=== PATIENT | male | born 1990 | race Caucasian/White ===

== ENCOUNTER 2024-09-06 16:17 | Emergency (ER) | payer BC, SELFPAY ==
--- OUTSIDE RECORDS SUMMARY | 2024-09-06 16:20 | XMS_ITS | Clinical Summary ---
Author Organization [facility] Address [address] [place] [id number] Care Team Providers Care Branch General Manager Name Role Phone Jorge Jones PA-C Primary Care Provider Allergies Active Allergy Reactions Criticality Noted Date Comments No Known Drug Allergy 12/21/2002 Medications ketorolac (TORADOL) 10 MG tablet Take 1 tablet (10 mg) by mouth every 6 hours as needed for pain 15 tablet 0 Active Additional Information Patient not taking.Reported on 06/04/2022 Active Problems Problem Noted Date Diagnosed Date Tobacco use 02/11/2013 CARDIOVASCULAR SCREENING; LDL GOAL LESS THAN 160 06/26/2011 ADHD (attention deficit hyperactivity disorder) 04/27/2008 Overview (08/15/2013): As long as stable, next OV due 07/2013; SEE PHONE CALL FROM 04/14/13 BEFORE ANY REFILLS 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 Provider to review Resolved Problems Problem Noted Date Diagnosed Date Resolved Date Pain in limb 12/28/2005 11/07/2011 Mild intermittent asthma Immunizations Immunization Administration Dates Next Due DTAP (<7y) 11/23/1996 HEPA 05/03/2007,11/04/2005 HIB (PRP-T) 03/19/1993, 3,01/16/1992,10/31 HepB 10/21/1994,05/29/1994,04/16/1994 Hepatitis A (Vaqta/Havrix)(P eds 12m-18y) 05/03/2007,11/04/2005 Historical DTP/aP 12/10/1992, 2,01/16/1992,10/31 Influenza (IIV3) PF 01/11/2014,04/09/2012 Influenza Vaccine >6 months,quad, PF 01/11/2019 MMR (MMRII) 11/23/1996,12/10/1992 Meningococcal ACWY (Menactra ) 11/04/2005 Meningococcal ACWY (Menveo ) 11/04/2005 OPV, trivalent, live 11/23/1996,12/10/18 93,01/16/1992,10/31 TD,PF 7+ (Tenivac) 07/25/2004 TDAP (Adacel,Boostrix) 03/14/2018 Td (Adult), Adsorbed 07/25/2004 Varicella (Varivax) 05/03/2007,10/21/1994 Family History Medical History Relation Comments Diabetes Maternal Grandfather Type II Cancer Maternal Grandmother Lung Relation Status Comments Maternal Grandfather Maternal Grandmother Social History Tobacco Use Types Packs/Day Years Used Date Smoking Tobacco: Every Day Cigarettes Smokeless Tobacco: Never Tobacco Cessation:Ready to Q uit: Not Asked; Counseling Given: Not Answered Alcohol Use Standard Drinks/Week Comments Yes 20 (1 standard drink = 0.6 oz pu re alcohol) Adolescent Education Answer Date Record ed Getting School Help Needed Not on file 01/04 Sex and Gender Information Value Date Recorded Sex Assigned at Not on file Legal Sex Male 4:17 AM TOBACCO STRIPPER HAND Gender Identity Not on file Sexual Orientation Not on file Last Filed Vital Signs Vital Sign Reading Time Taken Comments Blood Pressure 112/79 06/04/2022 11:58 AM TOBACCO STRIPPER HAND Pulse 71 06/04/2022 11:58 AM TOBACCO STRIPPER HAND Temperature 36.7 C (98 F) 06/04/2022 11:58 AM TOBACCO STRIPPER HAND Respiratory Rate 16 06/04/2022 11:58 AM TOBACCO STRIPPER HAND Oxygen Saturation 97% 06/04/2022 11:58 AM TOBACCO STRIPPER HAND Inhaled Oxygen Concentration - - Weight 99.3 kg (219 lb) 06/04/2022 11:58 AM TOBACCO STRIPPER HAND Height 185.4 cm (6' 1) 09/14/2019 3:52 PM CDT Body Mass Index 28.89 09/14/2019 3:52 PM CDT Plan of Treatment Health Maintenance Due Date Last Done Comments ADVANCE CARE PLANNING 1991 ANNUAL REVIEW OF HM ORDERS 1991 HIV SCREENING 08/11/2006 YEARLY PREVENTIVE VISIT 05/03/2008 05/03/2007, 11/04 HEPATITIS C SCREENING 08/11/2009 PNEUMOCOCCAL VACCINE: PEDIATRICS (0 to 5 YEARS) AND AT-RISK PATIENTS (6 to 49 YEARS) (1 of 2 - PCV) 08/11/2010 COVID-19 VACCINE ( - season) 2023 PHQ-2 (once per calendar year) 2024 INFLUENZA VACCINE (Season Ended) 2024 01/11/2019, 01/11/2014, 04/09/2012 DTAP/TDAP/TD VACCINE (7 - Td or Tdap) 03/14/2028 03/14/2018, 07/25/2004, 07/25/2004, Additional history exists ZOSTER VACCINE (1 of 2) 08/11/2041 HEPATITIS B VACCINE Completed 10/21/1994, 05/29/1994, 04/16/1994 MENINGITIS VACCINE Aged Out 11/04/2005, 11/04/2005 No longer eligible based on patient's age to complete this topic HPV VACCINE Aged Out No longer eligi ble based on patient's age to complete this topic Insurance [facility] Care Teams Branch General Manager Relationship Specialty Start Date End Date Jorge Jones PA-C [address] [id number] PCP - General Family Practice 06/26/11
[2024-09-06 16:41] VITALS: BP 101/65; PULSE 111; RESP 24; TEMP 37.1; O2SAT 98; BMI 26.7
--- NOTE | 2024-09-06 17:04 | ED_ITS ---
HPI - General Adult General Chief complaint: Nausea/Vomiting Stated complaint: vomiting, cramping Time Seen by Provider: 09/06/24 17:04 History of Present Illness HPI narrative: patient is having pain in the abdomen of NVD. called stomach for the past 8 months-12 years . today the pain is the worst and in the center with radiation up into the upper abd. wants to rule out appy and other causes. 34-year-old man presenting to the emergency department Since childhood history of abdominal pains. Does have GERD and takes regular antacids. Once a month for years will have period of time usually was 4-5 hours where he has both diarrhea and vomiting after some small harder stools. This abdominal pain though is becoming more intense and lasting for longer duration might be lungs 36 hours. No melena or hematochezia is described. Is here with spouse and mother and another. Mom recounts how had projectile vomiting? as a child with colic. Does not sound like there was a diagnosis made of pyloric stenosis. Had reflux at that time. They note the grandmother with diverticulitis and irritable bowel possibly ulcerative colitis? Mom did give Tej one of her Xanax today as he does struggle with some anxiety. Has never had any evaluation or at least not any imaging. Does admit to THC use though it sounds somewhat limited. Related Data Previous Rx's ?Medication ?Instructions ?Recorded omeprazole 40 mg capsule,delayed 40 mg PO DAILY #30 ca ps 09/06/24 release Allergies Allergy/AdvReac Type Severity Reaction Status Date / Time No Known Drug Allergies Allergy Verified 09/06/24 16:48 Review of Systems Status of ROS: Reports: 6 or more systems reviewed and unremarkable except as noted in History and below Exam Narrative: Exam Narrative: Pleasant. Clearly uncomfortable. Moaning a little in discomfort. Skin is warm and dry. Extremities are well perfused without edema. Heart in elevated rate and regular rhythm. Abdomen present bowel sounds. Diffusely tender with a little guarding. Tenderness more in the mid upper abdomen. Const: Vital Signs, click to edit/add: Vital Signs - 24 hr 09/06/24 16:41 Temperature 98.7 F Pulse Rate [Pulse Oximeter] 111 H Respiratory Rate 24 Blood Pressure [Ri ght Upper Arm] 101/65 Pulse Oximetry 98 Oxygen Delivery Me thod Room Air Documenting provider has reviewed patient's vital signs: yes Course Vital Signs Vital signs: Initial Vital Signs Temperature 98.7 F 09/06/24 16:41 Temperature Source Temporal Artery Scan 09/06/24 16:41 Pulse Rate 111 H 09/06/24 16:41 Respiratory Rate 24 09/06/24 16:41 Blood Pressure 101/65 09/06/24 16:41 Blood Pressure Mean 77 09/06/24 16:41 Blood Pressure Position Sitting 09/06/24 16:41 Pulse Oximetry 98 09/06/24 16:41 Oxygen Delivery Method Room Air 09/06/24 16:41 Vital Signs Temperature 98.7 F 09/06/24 16:41 Pulse Rate 111 H 09/06/24 16:41 Respiratory Rate 24 09/06/24 16:41 Blood Pressure 101/65 09/06/24 16:41 Pulse Oximetry 98 09/06/24 16:41 Oxygen Delivery Method Room Air 09/06/24 16:41 Temperature 98.7 F 09/06/24 16:41 Pulse Rate 62 09/06/24 20:20 Respiratory Rate 16 09/06/24 20:20 Blood Pressure 115/63 09/06/24 20:20 Pulse Oximetry 97 09/06/24 20:20 Oxygen Delivery Method Room Air 09/06/24 20:20 Medications Administered Medications: Discontinued Medications Generic Name Dose Route Start Last Admin Trade Name Freq PRN Reason Stop Dose Admin Hyoscyamine 0.25 mg 09/06/24 17:29 09/06/24 18:03 Hyoscyamine Sulfate 0.125 Mg Tab SUBLINGUAL 09/06/24 17:30 0.25 mg ONCE ONE Administration Sodium Chloride 1,000 mls @ 1,000 mls/hr 09/06/24 17:29 09/06/24 19:05 0.9 % Sodium Chloride 1000 Ml IV 09/06/24 18:28 Infused .Q1H ONE Infusion Lactated Ringer's 1,000 mls @ 1,000 mls/hr 09/06/24 18:57 09/06/24 20:43 Lactated Ringers 1000 Ml IV 09/06/24 19:56 Infused .Q1H ONE Infusion Ketorolac Tromethamine 30 mg 09/06/24 17:29 09/06/24 18:01 Ketorolac 30 Mg/Ml Inj IVP 09/06/24 17:30 30 mg ONCE ONE Administration Morphine Sulfate 4 mg 09/06/24 17:29 09/06/24 18:01 Morphine 4 Mg/Ml Inj IVP 09/06/24 17:30 4 mg ONCE ONE Administration Omeprazole 40 mg 09/06/24 20:22 09/06/24 20:37 Omeprazole [address] PO 09/06/24 20:23 40 mg ONCE ONE Administration Ondansetron HCl 4 mg 09/06/24 17:29 09/06/24 18:02 Ondansetron 2 Mg/Ml Inj IVP 09/06/24 17:30 4 mg ONCE ONE Administration Medical Decision Making MDM Narrative Medical decision making narrative: I did discuss my suspicion that there will be minimal findings here. Might be related anxiety. Appears to have functional abdominal pain. They would like to pursue further evaluation however and certainly relief of pain as soon as possible. Has never had any abdominal imaging so will offer that here today. Also check labs. I doubt that has appendicitis or other localizing intervenable problem. Ordered for Zofran, morphine, hyoscyamine, ketorolac, normal saline. White count has some elevation of 15.4. We will proceed with abdominal CT imaging. Creatinine little bit elevated at 1.3 in the setting of an elevated lactate at 2. I suspect this is due to poor intake/dehydration. Given another L of fluids -LR IV contrasted CT of abdomen and pelvis independently reviewed by me looks to be unremarkable. Overall markedly improved with treatment as above. Radiology over-read below TECHNIQUE: CT abdomen and pelvis acquired with 95 cc Isovue 370 IV contrast. COMPARISON: None. FINDINGS: Lower chest: Unremarkable. Liver: Unremarkable. Normal in size and attenuation. No suspicious masses. Gallbladder and bile ducts: Unremarkable. No stones or inflammation. No biliary dilatation. Pancreas: Unremarkable. No mass or inflammation. Spleen: Unremarkable. Normal in size. No masses. Adrenal glands: Unremarkable. No nodules. Kidneys: Unremarkable. No suspicious masses, stones, or hydronephrosis. GI tract: Unremarkable. Normal in caliber. No sign of mass or inflammation. Appendix not definitely seen, however no right lower quadrant inflammatory stranding to suggest appendicitis. Vasculature: Abdominal aorta is normal in caliber. Mesenteric arteries are patent. Lymph nodes: No lymphadenopathy. Peritoneum/Abdominal Wall: Unremarkable. No sign of mass or infiltration. No free air or significant free fluid. Pelvis: Unremarkable. Bones: Unremarkable for age. IMPRESSION: No acute intra-abdominal/pelvic abnormality. Please note that all CT scans at this facility use dose modulation, iterative reconstruction, and/or weight-based dosing when appropriate to reduce radiation dose to as low as reasonably achievable. Dictated by Jewel Oneill MD @ 09/06/2024 6:31:27 PM Discussed next steps in workup including scopes and then further medical management as necessary. Discussed likely complicated treatment but Mr. Wang appears motivated. Also expressed concerns of potential relationship with THC. Does appear interested in alternative medicine treatments if possible. See patient discharge plan for further discussion Stay well-hydrated. It might be helpful to begin a diet diary of everything you eat and drink and smoke/ingest and however this might correlate with flares of your abdominal pain. Given chronicity of this and your history of esophageal reflux type symptoms, I do think it would be good idea to for you to get an EGD and possibly a colonoscopy. Can certainly follow-up in clinic as discussed. You might end up with referral to GI as well. If you want to pursue alternative medication that is certainly fine; I would just communicate this also to your new primary care provider. Probiotics of various forms probably do not hurt anything. Am prescribing medication for nausea Zofran and opiate-containing pain medicine from [facility]. I would take at least 2 weeks of omeprazole. You received a dose of pantoprazole here. Further recommendations to come during follow-up visits Lab Data Lab results reviewed: Yes I reviewed the patient's lab results Labs: Lab Results 09/06/24 09/06/24 Range/Units 17:29 18:10 WBC 15.41 H (4.50-11.00) K/uL RBC 5.75 (4.30-5.90) m/uL Hgb 18.5 H (13.5-17.5) gm/dL Hct 51.6 (37.0-53.0) % MCV 90 (80-100) fL MCH 32 (26-34) pg MCHC 36 (32-36) gm/dL RDW Coeff of [place] 11.9 (11.5-15.5) % Plt Count 350 (140-440) K/uL Neut % (Auto) 92.5 H (42.0-72.0) % Lymph % (Auto) 3.8 L (20-44) % [place] % (Auto) 3.2 (0.0-11.0) % Eos % (Auto) 0.1 (0.0-7.0) % Baso % (Auto) 0.3 (0.0-3.0) % Neut # (Auto) 14.30 H (1.7-7.0) K/uL Lymph # (Auto) 0.60 L (0.90-2.90) K/uL [place] # (Auto) 0.50 (0.00-0.90) K/UL Eos # (Auto) 0.00 (0.00-0.50) K/uL Baso # (Auto) 0.00 (0.00-0.30) K/uL Abs Immat Gran (auto) 0.00 (0.00-0.30) K/uL Imm/Tot Granulo (auto) 0.1 % Sodium 139 (135-149) mmol/L Potassium 4.3 (3.6-5.1) mmol/L Chloride 106 (96-114) mmol/L Carbon Dioxide 19 L (20-32) mmol/L Anion Gap 14 (7-15) mEq/L BUN 22 (5-24) mg/dL Creatinine 1.3 (0.5-1.5) mg/dL Estimated Creat Clear 91.34 Estimated GFR 74 ml/min Glucose 123 H (60-115) mg/dL Lactate 2.0 H (0.5-1.9) mmol/L Calcium 10.0 (8.4-10.6) mg/dL Total Bilirubin 2.0 H (0.1-1.5) mg/dL Direct Bilirubin 0.0 (0.0-0.5) mg/dL AST 32 (12-35) U/L ALT 32 (4-50) U/L Alkaline Phosphatase 57 (40-150) U/L Total Protein 8.4 H (6.0-8.3) g/dL Albumin 5.2 H (3.3-5.0) g/dL Urine Color Yellow (Yellow) Urine Appearance Clear (Clear) Urine pH 6.0 (5.0-8.5) Ur Specific [place] >= 1.030 (1.000-1.030) Urine Protein 2+ A (Negative) Urine Glucose (UA) Negative (Negative) Urine Ketones 3+ A (Negative) Urine Blood Negative (Negative) Urine Nitrite Negative (Negative) Urine Bilirubin 2+ A (Negative) Urine Urobilinogen 0.2 (0.2-1.0) Ur Leukocyte Esterase Negative (Negative) Urine RBC 0-2 (0-2) Urine WBC 0-2 (0-5) Ur Squamous Epith Cells Few (None-Few) Urine Bacteria None (None) Urine Opiates Screen Negative (Negative) Ur Oxycodone Screen Negative (Negative) Urine Methadone Screen Negative (Negative) Ur Barbiturates Screen Negative (Negative) U Tricyclic Antidepress Negative (Negative) Ur Phencyclidine Scrn Negative (Negative) Ur Amphetamines Screen Negative (Negative) U Methamphetamines Scrn Negative (Negative) U Benzodiazepines Scrn POSITIVE A (Negative) Urine Cocaine Screen Negative (Negative) U Marijuana (THC) Screen POSITIVE A (Negative) Ur Drug Screen Comment See Note Discharge Plan Discharge Clinical Impression: GERD (gastroesophageal reflux disease), Functional abdominal pain syndrome Patient Disposition: Home w/ Parent or Adult Condition: Improved Instructions: GERD (Gastroesophageal Reflux Disease) (DC) Additional Instructions: Stay well-hydrated. It might be helpful to begin a diet diary of everything you eat and drink and smoke/ingest and however this might correlate with flares of your abdominal pain. Given chronicity of this and your history of esophageal reflux type symptoms, I do think it would be good idea to for you to get an EGD and possibly a colonoscopy. Can certainly follow-up in clinic as discussed. You might end up with referral to GI as well. If you want to pursue alternative medication that is certainly fine; I would just communicate this also to your new primary care provider. Probiotics of various forms probably do not hurt anything. Am prescribing medication for nausea Zofran and opiate-containing pain medicine from [facility]. I would take at least 2 weeks of omeprazole. You received a dose of pantoprazole here. Further recommendations to come during follow-up visits. Prescriptions: New omeprazole 40 mg capsule,delayed release(DR/EC) 40 mg PO DAILY Qty: 30 0RF Follow Up/Referrals: Provider,Not a Local [Primary Care Provider, Family Practice] Stand Alone Forms: Sleep.[facility] Info Instructions
--- NOTE | 2024-09-06 17:30 | CRLHL7_ITS ---
For Patients: As a result of the Century Cures Act, medical imaging exams and procedure reports are released immediately into your electronic medical record. You may view this report before your referring provider. If you have questions, please contact your health care provider. INDICATION: Recurrent severe mid abdominal pain. TECHNIQUE: CT abdomen and pelvis acquired with 95 cc Isovue 370 IV contrast. COMPARISON: None. FINDINGS: Lower chest: Unremarkable. Liver: Unremarkable. Normal in size and attenuation. No suspicious masses. Gallbladder and bile ducts: Unremarkable. No stones or inflammation. No biliary dilatation. Pancreas: Unremarkable. No mass or inflammation. Spleen: Unremarkable. Normal in size. No masses. Adrenal glands: Unremarkable. No nodules. Kidneys: Unremarkable. No suspicious masses, stones, or hydronephrosis. GI tract: Unremarkable. Normal in caliber. No sign of mass or inflammation. Appendix not definitely seen, however no right lower quadrant inflammatory stranding to suggest appendicitis. Vasculature: Abdominal aorta is normal in caliber. Mesenteric arteries are patent. Lymph nodes: No lymphadenopathy. Peritoneum/Abdominal Wall: Unremarkable. No sign of mass or infiltration. No free air or significant free fluid. Pelvis: Unremarkable. Bones: Unremarkable for age. IMPRESSION: No acute intra-abdominal/pelvic abnormality. Please note that all CT scans at this facility use dose modulation, iterative reconstruction, and/or weight-based dosing when appropriate to reduce radiation dose to as low as reasonably achievable. Dictated by Jewel Oneill MD @ 09/06/2024 6:31:27 PM (Electronically Signed)
[2024-09-06 17:58] LABS: Appearance Urine Clear (Clear); Bilirubin Urine 2+ (Negative); Blood Urine Negative (Negative); Color Urine Yellow (Yellow); Glucose Urine Negative (Negative); Ketones Urine 3+ (Negative); Leukocyte Esterase Urine Negative (Negative); Nitrite Urine Negative (Negative); Protein Urine 2+ (Negative); Specific Gravity Urine >= 1.030 (1.000-1.030); Urobilinogen Urine 0.2 (0.2-1.0)
[2024-09-06] MEDS: MORPHINE 4 MG/ML INJ IVP (18:01)
[2024-09-06] MEDS: KETOROLAC 30 MG/ML inj IVP (18:01)
[2024-09-06] MEDS: ONDANSETRON 2 MG/ML inj 4 MG IVP (18:02)
[2024-09-06] MEDS: 0.9 % SODIUM CHLORIDE 1000 ml 1,000 ML IV (18:03)
[2024-09-06] MEDS: HYOSCYAMINE SULFATE 0.125 MG TAB 0.25 MG SUBLINGUAL (18:03)
[2024-09-06 18:05] LABS: Amphetamine Screen Urine Negative (Negative); Barbiturate Screen Urine Negative (Negative); Benzodiazepines Screen Urine POSITIVE (Negative); Cannabinoid Screen Urine POSITIVE (Negative); Cocaine Screen Urine Negative (Negative); Methadone Screen Urine Negative (Negative); Methamphetamines Screen Urine Negative (Negative); Opiate Screen Urine Negative (Negative); Oxycodone Screen Urine Negative (Negative); Phencyclidine Screen Urine Negative (Negative); Tricyclic Antidepressant Urine Negative (Negative)
[2024-09-06 18:13] LABS: RBC Urine 0-2 (0-2); Squamous Epithelial Cell Urine Few (None-Few); WBC Urine 0-2 (0-5)
[2024-09-06 18:24] LABS: Basophils Percent Auto 0.3 % (0.0-3.0); Eosinophils Percent Auto 0.1 % (0.0-7.0); Hematocrit 51.6 % (37.0-53.0); Hemoglobin* 18.5 gm/dL (13.5-17.5); Immature Granulocytes Pct Auto 0.1 %; Lymphocytes Percent Auto 3.8 % (20-44); Mean Corpuscular HGB Conc 36 gm/dL (32-36); Mean Corpuscular Hemoglobin 32 pg (26-34); Mean Corpuscular Volume 90 fL (80-100); Monocytes Percent Auto 3.2 % (0.0-11.0); Neutrophils Percent Auto 92.5 % (42.0-72.0); Platelet Count* 350 K/uL (140-440); RDW Coefficient of Variation % 11.9 % (11.5-15.5); Red Blood Count 5.75 m/uL (4.30-5.90); White Blood Count* 15.41 K/uL (4.50-11.00)
[2024-09-06 18:25] LABS: Slide Review Reflex No
[2024-09-06 18:45] VITALS: BP 108/62; PULSE 79; RESP 16; O2SAT 96
[2024-09-06 18:51] LABS: Albumin* 5.2 g/dL (3.3-5.0); Chloride* 106 mmol/L (96-114); Potassium* 4.3 mmol/L (3.6-5.1); Sodium* 139 mmol/L (135-149)
[2024-09-06 18:53] LABS: Anion Gap 14 mEq/L (7-15); Blood Urea Nitrogen* 22 mg/dL (5-24); Carbon Dioxide* 19 mmol/L (20-32); Creatinine* 1.3 mg/dL (0.5-1.5); Est. Creatinine Clearance* 91.34; Estimated Glomerular Filt Rate 74 ml/min
[2024-09-06 18:54] LABS: Alanine Aminotransferase* 32 U/L (4-50); Alkaline Phosphatase* 57 U/L (40-150); Aspartate Amino Transferase* 32 U/L (12-35); Glucose* 123 mg/dL (60-115); Total Protein* 8.4 g/dL (6.0-8.3)
[2024-09-06] MEDS: LACTATED RINGERS 1000 ML 1,000 ML IV (19:03)
[2024-09-06 20:20] VITALS: BP 115/63; PULSE 62; RESP 16; O2SAT 97
[2024-09-06] MEDS: OMEPRAZOLE 20 MG CAPSULE DR 40 MG PO (20:37)
== END 2024-09-06 20:44 | disposition home or self-care (01) ==
PROVIDERS: Emergency Provider Family Medicine
DX: R10.9 Unspecified abdominal pain (principal); K21.9 Gastro-esophageal reflux disease without esophagitis; R19.7 Diarrhea, unspecified; R11.10 Vomiting, unspecified; F12.90 Cannabis use, unspecified, uncomplicated
CPT/HCPCS: 36415; 74177; 80048; 80076; 80306; 81001; 83605; 85025; 96374; 96375; 99284; 99285; A9270; J1885; J2270; J2405; J7030; J7120; Q9967

== ENCOUNTER 2024-09-23 11:22 | Outpatient (CLI) | payer BC, SELFPAY ==
--- NOTE | 2024-09-23 11:30 | CRLHL7_ITS ---
For Patients: As a result of the Century Cures Act, medical imaging exams and procedure reports are released immediately into your electronic medical record. You may view this report before your referring provider. If you have questions, please contact your health care provider. INDICATION: Abdominal pain COMPARISON: CT 09/06/2024 TECHNIQUE: Real time haddad scale imaging and color Doppler analysis was performed of the right upper quadrant. FINDINGS: The patient`s liver is of normal size and has uniform echogenicity. There is a normal appearance of the hepatic IVC and proximal abdominal aorta. There is no evidence of ascites. The gallbladder is of normal size and there is no evidence of intraluminal stones or sludge. The gallbladder wall measures 2.4 mm in thickness. The common bile duct is of normal size and measures 2.3 mm in diameter at the level of the yara hepatis. The pancreas appears normal. There is no evidence of a stone or hydronephrosis within the right kidney. The right kidney measures 10.4 cm in length. IMPRESSION: Normal right upper quadrant ultrasound. Dictated by Jack Eason MD @ 09/23/2024 12:10:02 PM (Electronically Signed)
--- OUTSIDE RECORDS SUMMARY | 2024-09-24 00:29 | XMS_ITS | Clinical Summary ---
Author Organization [facility] Address [address] [place] [id number] Care Team Providers Care Productivity Engineer Name Role Phone Jorge Jones PA-C Primary [...] on file Legal Sex Male 4:17 AM LIME TRIMMER Gender Identity Not on file Sexual Orientation Not on file Last Filed Vital Signs Vital Sign Reading Time Taken Comments Blood Pressure 112/79 06/04/2022 11:58 AM LIME TRIMMER Pulse 71 06/04/2022 11:58 AM LIME TRIMMER Temperature 36.7 C (98 F) 06/04/2022 11:58 AM LIME TRIMMER Respiratory Rate 16 06/04/2022 11:58 AM LIME TRIMMER Oxygen Saturation 97% 06/04/2022 11:58 AM LIME TRIMMER Inhaled Oxygen Concentration - - Weight 99.3 kg (219 lb) 06/04/2022 11:58 AM LIME TRIMMER Height 185.4 cm (6' 1) 09/14/2019 3:52 [...] patient's age to complete this topic Insurance [facility] Care Teams Productivity Engineer Relationship Specialty Start Date End Date Jorge Jones PA-C [address] [address] PCP - General Family Practice 06/26/11
== END 2024-09-23 11:23 | disposition home or self-care (01) ==
LOC: US 11:23
PROVIDERS: PCP Internal Medicine; Visit Provider Internal Medicine
DX: R10.9 Unspecified abdominal pain (principal)
CPT/HCPCS: 76705

== ENCOUNTER 2024-10-25 10:44 | Outpatient (CLI) | payer BC, SELFPAY ==
--- NOTE | 2024-10-25 11:54 | P.ANES_ITS ---
Anesthesia Charges Start Date/Time Anesthesia Start Date: 10/25/24 Anesthesia Start Time: 11:33 Stop Date/Time Anesthesia Stop Date: 10/25/24 Anesthesia Stop Time: 11:52 Coding CPT Codes CPT Codes: ANES UPR GI NDSC PX NOS - 65403 ([id number]) P2 - PATIENT W/MILD SYST DISEASE, QZ - ATG JAVA DEVELOPER SVC W/O LEAD REFINERY SUPERVISOR BY
--- NOTE | 2024-10-25 11:54 | W.ANESCHARGE ---
Anesthesia Charges Start Date/Time Anesthesia Start Date: 10/25/24 Anesthesia Start Time: 11:33 Stop Date/Time Anesthesia Stop Date: 10/25/24 Anesthesia Stop Time: 11:52 Coding CPT Codes CPT Codes: ANES UPR GI NDSC PX NOS - 70167 ([id number]) P2 - PATIENT W/MILD SYST DISEASE, QZ - SUBSTANCE ABUSE TECHNICIAN SVC W/O BENEFITS MANAGER BY
== END 2024-10-25 10:45 | disposition home or self-care (01) ==
LOC: OP CLINIC 10:44
PROVIDERS: PCP Internal Medicine; Visit Provider Surgery
DX: R10.13 Epigastric pain (principal); R19.7 Diarrhea, unspecified; R11.10 Vomiting, unspecified; K21.9 Gastro-esophageal reflux disease without esophagitis; K22.89 Other specified disease of esophagus
CPT/HCPCS: 00731; 43239; 88305; J2704; J3010